=== PATIENT | male | born 1960 | race Caucasian/White ===

== ENCOUNTER → 2021-04-18 | Emergency (ER) | payer OTHER ==
[~2021-04-18] VITALS: Ht 182.9 cm; Wt 100.0 kg
[~2021-04-18] MED LIST: BACITRACIN ZINC TOPICAL OINT PACKET. TP ONE; LIDOCAINE 1% PF 30 ML VIAL. INJ ONE
[2021-04-18 15:20] VITALS: BP 128/67
--- NOTE | 2021-04-18 17:01 | PHYS DOC ---
Past History Additional Past Medical Histor: spleenomegaly (JOSE MEJIA APRN) Past Surgical History: No Surgical History (JOSE MEJIA APRN) Alcohol Use: None (JOSE MEJIA APRN) Adult General Chief Complaint Chief Complaint: LACERATION/AVULSION HPI HPI Patient is a 60-year-old male presents emergency department complaining of a laceration to his right lower extremity just prior to arrival. Patient states he was crawling on some old wooden pallets and noticed that he was bleeding into his boot. Patient states he did not feel the laceration process. Patient reports it may have been from an old nail sticking out of the old wooden pallets that he was crawling on. Patient states his last tetanus immunization was less than 5 years ago. Denies pain to his laceration site. Denies other physical complaints or physical concerns. (JOSE MEJIA APRN) Review of Systems Review of Systems 14 body systems of review of systems have been reviewed. See HPI for pertinent positives and negative responses, otherwise all other systems are negative, nonpertinent or noncontributory. Constitutional: Negative except as outlined in HPI above. Skin: Negative except as outlined in HPI above. Eyes: Negative except as outlined in HPI above. HENT: Negative except as outlined in HPI above. Respiratory: Negative except as outlined in HPI above. Cardiovascular: Negative except as outlined in HPI above. GI: Negative except as outlined in HPI above. : Negative except as outlined in HPI above. Musculoskeletal: Negative except as outlined in HPI above. Integument: Negative except as outlined in HPI above. Neurologic: Negative except as outlined in HPI above. Endocrine: Negative except as outlined in HPI above. Lymphatic: Negative except as outlined in HPI above. Psychiatric: Negative except as outlined in HPI above. (JOSE MEJIA APRN) Current Medications Current Medications Current Medications Medications (Trade) Dose Ordered Sig/Ej Start Time Stop Time Status Last Admin Dose Admin Lidocaine HCl (Lidocaine 1% Pf) 30 ml 1X ONCE 04/18/21 16:00 04/18/21 16:01 UNV (JOSE MEJIA APRN) Physical Exam Physical Exam Constitutional: Well developed, well nourished, no acute distress, non-toxic appearance. 60-year-old male in no apparent distress. HENT: Normocephalic, atraumatic. Eyes: Conjunctiva normal, no discharge. Neck: Normal range of motion, no stridor. Cardiovascular: No cyanosis appreciated, distal cap refill less than 2 seconds. Lungs & Thorax: Patient is in no respiratory distress, no audible adventitious lung sounds appreciated. Abdomen: Nontender, no abnormalities noted. Skin: Warm, dry, no erythema, no rash. See extremity note for focused skin examination. Back: No tenderness, no deformities. Extremities: No tenderness, no cyanosis, no clubbing, ROM intact, no edema. Except for right lower extremity medial aspect lower leg has 4 cm laceration m idshaft skin surface full skin thickness with adipose tissue exposed, there is an additional 0.8 cm laceration just distal to the 4 cm laceration. No loss of sensation distally, full AROM/PROM of adjacent joints. No swelling, no edema, no infectious process appreciated. Neurologic: Alert and oriented X 3, normal motor function, normal sensory function, no focal deficits noted. Psychologic: Affect normal, judgement normal, mood normal. (JOSE MEJIA APRN) Current Patient Data Vital Signs Vital Signs Date Time Temp Pulse Resp B/P (MAP) Pulse Ox O2 Delivery O2 Flow Rate FiO2 04/18/21 15:20 98.2 80 16 128/67 (87) 98 (JOSE MEJIA APRN) EKG EKG [] (JOSE MEJIA APRN) Radiology/Procedures Radiology/Procedures [] (JOSE MEJIA APRN) Heart Score C/O Chest Pain: No Risk Factors: Risk Factors: DM, Current or recent (<one month) smoker, HTN, HLP, family history of CAD, obesity. Risk Scores: Risk Factors: DM, Current or recent (<one month) smoker, HTN, HLP, family history of CAD, obesity. (JOSE MEJIA APRN) Course & Med Decision Making Course & Med Decision Making Pertinent Labs and Imaging studies reviewed. (See chart for details) 60-year-old male, vital signs reviewed, presents to the emergency department concerning laceration to right lower extremity. Patient's tetanus immunization is up-to-date, physical examination is consistent with patient's explanation of events. See laceration repair note. Patient gave verbal understanding of discharge home instructions, laceration care, suture removal in 7 to 10 days, signs and symptoms of infection. Patient is amendable to ED discharge planning. Discussed with the patient all findings and diagnostic testing as well as the need to follow-up with their primary care provider for further evaluation and treatment or return to the ED if any new or worsening symptoms. Strict return precautions were also discussed at length, the patient voiced understanding and agreement with the discharge planning. The patient was nontoxic in appearance, in no apparent distress, and hemodynamically stable at the time of disposition. (JOSE MEJIA APRN) Course & Med Decision Making I was the Attending physician on the above date of service of this patient. This patient was evaluated, examined, treated, and dispositioned from the emergency department by the mid-level practitioner. Although I was working at the time , no assistance was requested. Electronically signed, Patt Hood DO (PATT HOOD DO) Dragon Disclaimer Dragon Disclaimer This electronic medical record was generated, in whole or in part, using a voice recognition dictation system. (JOSE MEJIA APRN) Laceration Repair Lac Repair Indication: Laceration right lower extremity. Time: 1630 Confirmed: Patient, procedure, side, and site correct. Consent: Patient, has given verbal consent. Description/repair Procedure: The patient was placed in the appropriate position and anesthesia around the laceration was achieved with 8 cc 1% lidocaine without epinephrine. . The area was then cleansed with 500 cc normal saline. The laceration was explored for foreign bodies, there were no foreign bodies. Both the 4 cm laceration and 0.8 cm laceration was cleansed and explored for foreign bodies, there were no foreign bodies, the 4 cm laceration was closed with 5 each interrupted sutures using 4-0 nylon, the 0.8 cm laceration was closed with 1 each interrupted sutures using 5-0 nylon. The wound area was then dressed with bacitracin and Band-Aid by ED nursing staff. Complexity: Single layer. Post procedure exam: Circulation, motor, sensory examination intact, bleeding controlled. Total repaired wound length: 4.8 cm. Other Items: No other items. The patient tolerated the procedure well. Complications: There were no complications.. Performed by: SelfJose, [employer] Supervision: Dr. Hood was present for consult regarding the critical aspects of the procedure including closure and post procedure exam. Total time: 15 minutes. (JOSE MEJIA APRN) Departure Departure: Impression: Primary Impression: Laceration Disposition: HOME / SELF CARE / HOMELESS Condition: GOOD Referrals: PCP,NO (PCP) Patient Instructions: Sutured Wound Care Additional Instructions: You were seen today in the emergency department for two lacerations to your right lower leg. This required 5 sutures in 1 and 1 suture on the other that will need to be removed in 7 to 10 days. Please follow-up with your primary care physician for suture removal. Please keep clean and dry, do not soak in water, do not swim, do not soak in hot tubs or swimming pools or or other bodies of water until sutures are removed. Please apply antibiotic ointment 3 times a day after daily cleansing and cover with Band-Aid to prevent the sutures from becoming disrupted or dislodged by clothing such as socks or slacks. Because of your blood clotting disorder, this suture site may use for a period of time over the next hour or so but should stop bleeding soon. Please return to the emergency department for ongoing bleeding or other concerns. Thank you for visiting our Emergency Department. It was a pleasure taking care of you today in the emergency department and we appreciate you trusting us with your care. If any additional problems come up don't hesitate to return to visit us. Please follow up with your primary care provider so they can plan additional care if needed and know about the problem that you had. If symptoms worsen come back to the Emergency Department. Any concerning symptoms that start such as chest pain, shortness of air, weakness or numbness on one side of the body, running high fevers or any other concerning symptoms return to the ER. JOSE MEJIA APRN Apr 18, 2021 17:01 PATT HOOD DO Apr 19, 2021 06:15
== END | disposition home or self-care (01) ==
LOC: ER 15:15
DX: S81.811A Laceration without foreign body, right lower leg, initial encounter (principal); W26.8XXA Contact with other sharp object(s), not elsewhere classified, initial encounter; Y93.89 Activity, other specified; Y92.89 Other specified places as the place of occurrence of the external cause; Y99.8 Other external cause status
CPT/HCPCS: 12002; 99283